=== PATIENT | female | born 1970 ===

== ENCOUNTER → 2019-09-24 | Outpatient (CLI) | payer OTHER ==
[2019-09-24 15:12] LABS: Anisocytosis Slight; Basophils % (A) 0 %; Eosinophils # (A) 0.1 k/uL (0-0.7); Eosinophils % (A) 2 %; HGB 9.3 gm/dL (11.4-16.0); Hypochromasia Marked; Lymphocytes # (A) 1.4 k/uL (1.0-4.8); Lymphocytes % (A) 35 %; MCH 22.5 pg (25.0-35.0); MCV 77.5 fL (80.0-100.0); Mean Platelet Volume 8.7; Microcytosis Moderate; Monocytes # (A) 0.2 k/uL (0-1.0); Monocytes % (A) 5 %; Neutrophils # (A) 2.3 k/uL (1.3-7.7); Neutrophils % (A) 55 %; Platelet Count 334 k/uL (150-450); RBC 4.12 m/uL (3.80-5.40); RDW 19.2 % (11.5-15.5); WBC 4.1 k/uL (3.8-10.6)
== END | disposition home or self-care (01) ==
LOC: LABWHC1 14:37
PROVIDERS: ATTEND Surgery
DX: Z01.818 Encounter for other preprocedural examination (principal); K43.0 Incisional hernia with obstruction, without gangrene; D64.9 Anemia, unspecified
CPT/HCPCS: 86900; 86901; 85025; 86850; 36415; U0003

== ENCOUNTER → 2019-09-26 | Day surgery (SDC) | payer OTHER ==
[2019-09-25 09:04] VITALS: BMI 41.9
[~2019-09-26] MED LIST: BUPIVACAIN-EPI 0.25%-1:200,000 30 ML VIAL SQ ONE; DEXAMETHASONE SOD PHOSPHATE 10 MG/ML 1 ML VIAL IV ONE; GLYCOPYRROLATE 0.2 MG/ML 2 ML VIAL ONE; HEPARIN SODIUM,PORCINE 5,000 UNIT/ML 1 ML VIAL SQ ONE; HYDROcodone/APAP 5-325MG 1 EACH TAB PO ONE; HYDROmorphone (PF) 1 MG/ML ONE; KETOROLAC 30 MG/ML 1 ML VIAL ONE; LACTATED RINGERS 1,000 ML IV ONE; LACTATED RINGERS 1,000 ML IV SCH; LIDOCAINE 1% INJ 10MG/ML (20 ML MDV) ONE; MIDAZOLAM 2 MG/2 ML VIAL ONE; NEOSTIGMINE 1 MG/ML 10 ML VIAL ONE; ONDANSETRON 4 MG/2 ML VIAL IVP ONE; ONDANSETRON 4 MG/2 ML VIAL IVP PRN; PROPOFOL 10 MG/ML 20 ML VIAL IV ONE; ROCURONIUM BROMIDE 10 MG/ML 5 ML VIAL IV ONE; SUCCINYLCHOLINE CHLORIDE 100 MG/5 ML SYR IV ONE; fentaNYL (PF) 50 MCG/ML 2 ML AMP ONE
--- NOTE | 2019-09-26 07:50 | P.GSHP ---
History of Present Illness H&P Date: 09/26/19 Chief Complaint: Incarcerated ventral hernia This a 49-year-old female who presents today for laparoscopic robotic-assisted repair of incarcerated ventral hernia. Patient has developed an enlarging hernia over the last several years. Past Medical History Additional Past Medical History / Comment(s): HIV , ANEMIA History of Any Multi-Drug Resistant Organisms: None Reported Past Surgical History: No Surgical Hx Reported Past Anesthesia/Blood Transfusion Reactions: No Reported Reaction Smoking Status: Former smoker - Past Family History Mother Family Medical History: No Reported History Medications and Allergies Home Medications Medication Instructions Recorded Confirmed Type Emtricitab/Rilpiviri/Tenof Ala 1 tab PO DAILY 09/25/19 09/26/19 History [Odefsey Tablet] Ferrous Sulfate [Iron] 325 mg PO DAILY 09/25/19 09/26/19 History Allergies Allergy/AdvReac Type Severity Reaction Status Date / Time No Known Allergies Allergy Verified 09/26/19 06:10 Surgical - Exam Vital Signs Temp Pulse Resp BP Pulse Ox 97.5 F L 64 18 136/82 99 09/26/19 06:20 09/26/19 06:20 09/26/19 06:20 09/26/19 06:20 09/26/19 06:20 - General well developed, no distress - Eyes PERRL - ENT normal pinna - Neck no masses - Respiratory normal expansion - Cardiovascular Rhythm: regular - Abdomen 8 cm incarcerated ventral hernia located above the umbilicus Abdomen: non tender Assessment and Plan Assessment: Incarcerated ventral hernia. We'll perform laparoscopic robotic-assisted repair.
[2019-09-26 09:19] VITALS: TEMP 97.1
--- NOTE | 2019-09-26 09:19 | P.OP ---
Date of Procedure: 09/26/19 Preoperative Diagnosis: Incarcerated ventral hernia Postoperative Diagnosis: Incarcerated ventral hernia Large uterine fibroids Procedure(s) Performed: Partial omentectomy Laparoscopic robotic-assisted repair of incarcerated ventral hernia Anesthesia: [facility] Surgeon: Zaheer Adams Estimated Blood Loss (ml): 5 Pathology: other (Omentum) Condition: stable Disposition: PACU Description of Procedure: The patient was placed on the operating table in the supine position. He received general anesthesia. His abdomen was prepped and draped usual fashion. Using a 5 mm optical trocar under direct visualization the peritoneal cavity was entered in the left upper quadrant. The abdomen was then insufflated. The laparoscope was placed back into the perineal cavity. Next a 8 mm robotic trocar was placed in the left lower quadrant and a 12 mm robotic trocar was placed in the left lateral position. The original 5 mm trocar was exchanged for a 8 mm robotic trocar. The patient's placed in the left side up position. And the patient was docked to the robot. The patient had a large ventral hernia. There is a large portion of omentum incarcerated within the hernia. A skin incision was made over the hernia and then using cautery the incarcerated omentum was transected sent to pathology. The subcutaneous fat was closed with 0 Vicryl in order to maintain pneumoperitoneum. The ventral hernia was visualized. Using hook cautery the peritoneum over the incisional hernia was excised. The fascial opening was repaired using 0V LOC suture. Next a piece of 11 cm round ventral light ST mesh was placed into the. Cavity and secured with 2 OV lock suture. The patient was undocked the robot. The needles were retrieved. The fascia of the 12 mm trocar site was closed with 0 Ethibond suture. Skin was closed interrupted 3-0 Monocryl suture. Dermabond dressings was applied. Patient tolerated procedure well and was sent to recovery room stable condition. Incidentally the patient was noted to have large uterine fibroids.
[2019-09-26] MEDS: HYDROmorphone 0.5 MG/0.5 ML SYRINGE IVP PRN ×2 (09:41→09:59)
[2019-09-26 10:25] VITALS: RESP 18
[2019-09-26 10:44] VITALS: BP 143/76; PULSE 75
== END ==
LOC: OR 05:52
PROVIDERS: ATTEND Surgery
DX: K43.6 Other and unspecified ventral hernia with obstruction, without gangrene (principal); B20 Human immunodeficiency virus [HIV] disease; D25.9 Leiomyoma of uterus, unspecified; D64.9 Anemia, unspecified; Z79.899 Other long term (current) drug therapy; Z87.891 Personal history of nicotine dependence
CPT/HCPCS: 81025; 86900; 86901; 86850; 88302; 49653; C1781; J2250; J1644; J1100; J2710; J0690; J2405; J2001; J3010; J1885; J1170 ×2; J0330; J2704